=== PATIENT | male | born 1985 | race African-American/Black ===

== ENCOUNTER 2019-07-22 12:58 | Emergency (ER) | payer MEDICAID ==
[~2019-07-22] VITALS: Ht 185.4 cm; Wt 81.0 kg
[2019-07-22] MEDS ORDERED: 0.9 % SOD CHL for STERILE FIELD 10 ML DISP.SYRIN. ONE (13:29)
[2019-07-22] MEDS ORDERED: ZIPRASIDONE IM 20 MG VIAL. IM ONE (13:30)
[2019-07-22 13:55] LABS: BASO % 1 % (0-3); EOS % 0 % (0-3); HEMATOCRIT 45.5 % (39.0-53.0); HEMOGLOBIN 15.2 g/dL (13.0-17.5); LYMPH # 2.1 x10^3/uL (1.0-4.8); LYMPH % 34 % (24-48); MEAN CORPUSCULAR HEMOGLOBIN 28 pg (25-35); MEAN CORPUSCULAR HGB CONC 34 g/dL (31-37); MEAN CORPUSCULAR VOLUME 84 fL (79-100); MONO # 0.5 x10^3/uL (0.0-1.1); MONO % 9 % (0-9); NEUT # 3.5 x10^3/uL (1.8-7.7); NEUT % 56 % (31-73); PLATELET COUNT 214 x10^3/uL (140-400); RED BLOOD COUNT 5.43 x10^6/uL (4.30-5.70); RED CELL DISTRIBUTION WIDTH 13.8 % (11.5-14.5); WHITE BLOOD COUNT 6.2 x10^3/uL (4.0-11.0)
[2019-07-22 14:14] LABS: CALCIUM 9.3 mg/dL (8.5-10.1); CREATININE 1.1 mg/dL (0.7-1.3); GFR 91.6; POTASSIUM 3.8 mmol/L (3.5-5.1)
[2019-07-22 14:17] LABS: ACETAMIN < 2 mcg/ml (10-30); SALIC 6.8 mg/dL (2.8-20.0)
[2019-07-22 14:27] LABS: ALBUMIN 4.1 g/dL (3.4-5.0); ALBUMIN/GLOBULIN RATIO 1.1 (1.0-1.7); TOTAL BILIRUBIN 0.3 mg/dL (0.2-1.0); TOTAL PROTEIN 7.8 g/dL (6.4-8.2)
--- NOTE | 2019-07-22 14:41 | PHYS DOC ---
Past Medical History Past Medical History: Schizophrenia Additional Past Medical Histor: mood disorder,ptsd Past Surgical History: No Surgical History Alcohol Use: None Adult General Chief Complaint Chief Complaint: PSYCH EVALUATION HPI HPI Patient is a 34 year old male who presents with alert and oriented and very an xious. He is pacing in the room. He states he just moved here from [place] yesterday as he was living with his girlfriend. He broke up with his girlfriend and she has off his schizophrenia medications and will not give them back to him. He states he is hallucinating he does not feel safe at home because he is hallucinating and hearing voices. He states voices a murder, , kill. He states he is not violent and uses a punching bag if needed. He on his daughter are living with his sister currently. States he got out of care home 9 months ago. He states in [place] he had mental health resources but does not have any wind up. He states he would like to establish medical health care and [place]. He denies SI or HI. Review of Systems Review of Systems Constitutional: Anxious, hearing voices. All other systems were reviewed and found to be within normal limits, except as documented in this note. Current Medications Current Medications Current Medications Medications (Trade) Dose Ordered Sig/Karma Start Time Stop Time Status Last Admin Dose Admin Sodium Chloride (NORMAL SALINE FLUSH for STERILE FIELD) 10 ml STK-MED ONCE 07/22/19 13:29 07/22/19 13:29 DC Ziprasidone (Geodon Im) 20 mg 1X ONCE 07/22/19 13:30 07/22/19 13:31 DC 07/22/19 13:34 20 MG Allergies Allergies Allergies Coded Allergies Type Severity Reaction Last Updated Verified No Known Drug Allergies 07/22/19 No Physical Exam Physical Exam Constitutional: Well developed, well nourished, no acute distress, non-toxic appearance. [] HENT: Normocephalic, atraumatic, bilateral external ears normal, oropharynx moist, no oral exudates, nose normal. [] Eyes: PERRLA, EOMI, conjunctiva normal, no discharge. [] Neck: Normal range of motion, no tenderness, supple, no stridor. [] Cardiovascular:Heart rate regular rhythm, no murmur [] Lungs & Thorax: Bilateral breath sounds clear to auscultation [] Abdomen: Bowel sounds normal, soft, no tenderness, no masses, no pulsatile masses. [] Skin: Warm, dry, no erythema, no rash. [] Back: No tenderness, no CVA tenderness. [] Extremities: No tenderness, no cyanosis, no clubbing, ROM intact, no edema. [] Neurologic: Alert and oriented X 3, normal motor function, normal sensory function, no focal deficits noted. [] Psychologic: Affect normal, judgement normal, mood normal, hearing voices. [] Current Patient Data Vital Signs Vital Signs Date Time Temp Pulse Resp B/P (MAP) Pulse Ox O2 Delivery O2 Flow Rate FiO2 07/22/19 13:20 98.6 95 18 97 Room Air 98.6 07/22/19 13:15 178/95 (122) Lab Values Laboratory Tests Test 07/22/19 13:44 07/22/19 14:48 White Blood Count 6.2 x10^3/uL (4.0-11.0) Red Blood Count 5.43 x10^6/uL (4.30-5.70) Hemoglobin 15.2 g/dL (13.0-17.5) Hematocrit 45.5 % (39.0-53.0) Mean Corpuscular Volume 84 fL (79-100) Mean Corpuscular Hemoglobin 28 pg (25-35) Mean Corpuscular Hemoglobin Concent 34 g/dL (31-37) Red Cell Distribution Width 13.8 % (11.5-14.5) Platelet Count 214 x10^3/uL (140-400) Neutrophils (%) (Auto) 56 % (31-73) Lymphocytes (%) (Auto) 34 % (24-48) Monocytes (%) (Auto) 9 % (0-9) Eosinophils (%) (Auto) 0 % (0-3) Basophils (%) (Auto) 1 % (0-3) Neutrophils # (Auto) 3.5 x10^3/uL (1.8-7.7) Lymphocytes # (Auto) 2.1 x10^3/uL (1.0-4.8) Monocytes # (Auto) 0.5 x10^3/uL (0.0-1.1) Eosinophils # (Auto) 0.0 x10^3/uL (0.0-0.7) Basophils # (Auto) 0.0 x10^3/uL (0.0-0.2) Sodium Level 142 mmol/L (136-145) Potassium Level 3.8 mmol/L (3.5-5.1) Chloride Level 103 mmol/L (98-107) Carbon Dioxide Level 27 mmol/L (21-32) Anion Gap 12 (6-14) Blood Urea Nitrogen 9 mg/dL (8-26) Creatinine 1.1 mg/dL (0.7-1.3) Estimated GFR (Cockcroft-Gault) 91.6 BUN/Creatinine Ratio 8 (6-20) Glucose Level 98 mg/dL (70-99) Calcium Level 9.3 mg/dL (8.5-10.1) Total Bilirubin 0.3 mg/dL (0.2-1.0) Aspartate Amino Transferase (AST) 31 U/L (15-37) Alanine Aminotransferase (ALT) 27 U/L (16-63) Alkaline Phosphatase 71 U/L (46-116) Total Protein 7.8 g/dL (6.4-8.2) Albumin 4.1 g/dL (3.4-5.0) Albumin/Globulin Ratio 1.1 (1.0-1.7) Salicylates Level 6.8 mg/dL (2.8-20.0) Salicylate Last Dose Date Unk Salicylate Last Dose Time Unk Acetaminophen Level < 2 mcg/ml (10-30) L Acetaminophen Last Dose Date Unk Acetaminophen Last Dose Time Unk Urine Opiates Screen Neg (NEG) Urine Methadone Screen Neg (NEG) Urine Barbiturates Neg (NEG) Urine Phencyclidine Screen Pos (NEG) Urine Amphetamine/Methamphetamine Neg (NEG) Urine Benzodiazepines Screen Neg (NEG) Urine Cocaine Screen Neg (NEG) Urine Cannabinoids Screen Pos (NEG) Urine Ethyl Alcohol Neg (NEG) Laboratory Tests 07/22/19 13:44 Laboratory Tests 07/22/19 13:44 EKG EKG [] Radiology/Procedures Radiology/Procedures [] Course & Med Decision Making Course & Med Decision Making Patient denies any pain. He is given Geodon 20 mg IM. Alert and oriented. Speaks in full clear sentences. Cooperative. Pat team Jordan has spoken to him and states he is fine with sending him to [place] or another place so he can establish care and get back on his meds today. PERRLA. Lungs are clear to auscultation in all lobes. Skin pink warm and dry. Vital signs within normal limits. Patient denies nausea, vomiting, abdominal pain, dizziness, headache, blurred vision, numbness or tingling, weakness, chest pain, shortness of air. Jordan from Pat team states that he is safe to go home as the patient states that he has a daughter at home and cannot go to [facility] today. Patient states he will follow-up with him tomorrow to establish care.Patient states he does not know how many Milligrams of Rexulti he is on. I have spoken to Dr Newton about givign the patient 15 days so that he has time to get into [facility]. He agrees with this care plan. Blood work is unremarkable. Positive PCP and MJ. 1530: Patient is currently sleeping from the Geodon given. He is arousable but fall right back to sleep. We will discharge patient when he is awake enough for discharge education. 1626: Patient is awake, alert and oriented. Patient is given discharge education and discharged home. [] Dragon Disclaimer Dragon Disclaimer This electronic medical record was generated, in whole or in part, using a voice recognition dictation system. Departure Departure Impression: Primary Impression: Encounter for psychological evaluation Disposition: 01 HOME, SELF-CARE Condition: STABLE Referrals: NO PCP (PCP) Patient Instructions: Medical Screening Exam Additional Instructions: Follow-up with [facility] tomorrow. If at all possible try to get your meds back. Scripts Brexpiprazole (Rexulti) 2 Mg Tablet 1 TAB PO DAILY for 15 Days, #15 TAB 0 Refills Prov: JULIANA BAEZ APRN 07/22/19 JULIANA BAEZ APRN Jul 22, 2019 14:41
[2019-07-22] MEDS ORDERED: BREX2TAB PO (14:51)
[2019-07-22 15:04] LABS: BARBITURATES NEG (NEG); BENZODIAZEPINES NEG (NEG); CANNABINOIDS POS (NEG); COCAINE NEG (NEG); METHADONE NEG (NEG); OPIATES NEG (NEG); PHENCYCLIDINE POS (NEG)
[2019-07-22 15:06] LABS: AMPHETAMINE/METHAMPHETAMINE NEG (NEG)
[2019-07-22 16:19] VITALS: BP 127/80
== END 2019-07-22 16:24 | disposition home or self-care (01) ==
LOC: ER 12:58
DX: F41.9 Anxiety disorder, unspecified (principal); F20.9 Schizophrenia, unspecified; F43.12 Post-traumatic stress disorder, chronic
CPT/HCPCS: 36415; 80053; 80307; 80329; 85025; 96372; 99284; J3486; G0480

== ENCOUNTER 2021-04-05 13:20 | Emergency (ER) | payer MEDICAID ==
[~2021-04-05] VITALS: Ht 180.3 cm; Wt 81.8 kg
[~2021-04-05 13:20] MED LIST: BREX2TAB PO
[2021-04-05 13:33] VITALS: BP 157/97
--- NOTE | 2021-04-05 13:56 | PHYS DOC ---
Past Medical History Past Medical History: Schizophrenia Additional Past Medical Histor: mood disorder,ptsd (JILLIAN PEREZ INTERACTIVE MARKETING STRATEGIST) Past Surgical History: No Surgical History (JILLIAN PEREZ INTERACTIVE MARKETING STRATEGIST) Smoking Status: Current Every Day Smoker Alcohol Use: None Social History Narrative: UNKNOWN,PT REFUSING TO ANSWER QUESTIONS (JILLIAN PEREZ INTERACTIVE MARKETING STRATEGIST) General Adult EDM: Chief Complaint: MEDICAL CLEARANCE HPI: HPI: Patient is a 35 year old male with history of schizophrenia who presents the ED today for medical clearance after being arrested by police. Patient was driving " crazy" by EMS report, when he was pulled over he refused to talk to police and they sent him to the ED for medical clearance. Patient continues to refuse to talk to us. I asked him to get dressed and leave considering he does not want any care in the ED. He got dressed and left (JILLIAN PEREZ INTERACTIVE MARKETING STRATEGIST) Review of Systems: Review of Systems: Constitutional: Patient refuses to talk HENT: Patient refuses to talk Respiratory: Patient refuses to talk Cardiovascular: Patient refuses to talk GI: Patient refuses to talk : Patient refuses to talk Musculoskeletal: Patient refuses to talk Integument: Patient refuses to talk Neurologic: Patient refuses to talk Psychiatric: Medical clearance for police arrest (JILLIAN PEREZ INTERACTIVE MARKETING STRATEGIST) Heart Score: C/O Chest Pain: N/A Risk Factors: Risk Factors: DM, Current or recent (<one month) smoker, HTN, HLP, family history of CAD, obesity. Risk Scores: Score 0 - 3: 2.5% MACE over next 6 weeks - Discharge Home Score 4 - 6: 20.3% MACE over next 6 weeks - Admit for Clinical Observation Score 7 - 10: 72.7% MACE over next 6 weeks - Early Invasive Strategies (JILLIAN PEREZ Randall INTERACTIVE MARKETING STRATEGIST) Allergies: Allergies: Allergies Coded Allergies Type Severity Reaction Last Updated Verified No Known Drug Allergies 07/22/19 No (JILLIAN PEREZ INTERACTIVE MARKETING STRATEGIST) Physical Exam: PE: Constitutional: Well developed, well nourished, no acute distress, non-toxic appearance. [] HENT: Normocephalic, bilateral external ears normal Eyes: PERRLA, EOMI, conjunctiva normal, no discharge. [] Neck: Normal range of motion Skin: Warm, dry, no erythema, no rash. [] Extremities: ROM intact, no edema. [] Neurologic: Alert and oriented follows directions but refuses to talk, normal motor function, normal sensory function, no focal deficits noted. [] Psychologic: flat affect refuses to talk (EVELIAMireilleJILLIAN Pereira APRN) Current Patient Data: Vital Signs: Vital Signs Date Time Temp Pulse Resp B/P (MAP) Pulse Ox O2 Delivery O2 Flow Rate FiO2 04/05/21 13:33 99.0 102 18 157/97 (117) 99 Room Air 99.0 (EVELIAMireilleJILLIAN Pereira APRN) EKG: EKG: [] (JILLIAN PEREZ APRN) Radiology/Procedures: Radiology/Procedures: [] (JILLIAN PEREZ APRN) Course & Med Decision Making: Course & Med Decision Making Pertinent Labs and Imaging studies reviewed. (See chart for details) This is a 35-year-old male patient presenting to the ED today for medical clearance after being arrested by police for "crazy driving. Patient apparently refused to talk to police when he was arrested so they sent him to the ED to be evaluated. Patient arrives in the ED and refuses to talk, he is refusing care. I asked him if he wants to get dressed and leave. He got dressed and walked away (JILLIAN PEREZ APRN) Dragon Disclaimer: Dragon Disclaimer: This electronic medical record was generated, in whole or in part, using a voice recognition dictation system. (JILLIAN PEREZ APRN) Departure Departure Impression: Primary Impression: Encounter for psychological evaluation Disposition: HOME / SELF CARE / HOMELESS Condition: STABLE Referrals: NO PCP (PCP) Attending Signature I have participated in the care of this patient and I have reviewed and agree with all pertinent clinical information above including history, exam, and recommendations. (MALLIKA GONZALEZ DO) JILLIAN PEREZ APRN Apr 05, 2021 13:56 MALLIKA GONZALEZ DO Apr 05, 2021 14:17
== END 2021-04-05 13:46 | disposition home or self-care (01) ==
LOC: ER 13:20
DX: Z01.818 Encounter for other preprocedural examination (principal); F20.9 Schizophrenia, unspecified; F43.10 Post-traumatic stress disorder, unspecified; F17.200 Nicotine dependence, unspecified, uncomplicated
CPT/HCPCS: 99283